=== PATIENT | male | born 1975 | race Caucasian/White ===

== ENCOUNTER 2018-12-24 06:21 | Day surgery (SDC) | payer OTHER ==
[~2018-12-24 06:21] MED LIST: Lactated Ringers 1,000 ML IV SCH; Lidocaine 1%/Sod Bicarbonate in NS 8.4% 1 ML Syringe IDERM PRN; Sodium Chloride 0.9% 10 ML Syringe FLUSH PRN
[2018-12-24] MEDS ORDERED: ceFAZolin 1 GM Vial ONE (06:56)
[2018-12-24] MEDS ORDERED: Ketorolac 30 MG/ML SDV ONE (06:56)
[2018-12-24] MEDS ORDERED: Ondansetron 4 MG/2 ML SDV ONE (06:56)
[2018-12-24] MEDS ORDERED: Lactated Ringers 1,000 ML ONE (06:56)
[2018-12-24] MEDS ORDERED: fentaNYL 100 MCG/2 ML SDV ONE ×2 (06:57→07:39)
[2018-12-24] MEDS ORDERED: Propofol 200 MG/20 ML SDV ONE (06:57)
[2018-12-24] MEDS ORDERED: Dexamethasone 4 MG/ML 5 ML MDV ONE (06:57)
[2018-12-24] MEDS ORDERED: Lidocaine 1% 4 ML ONE (06:57)
[2018-12-24] MEDS ORDERED: Midazolam 1 MG/ML 2 ML SDV ONE (06:57)
[2018-12-24] MEDS ORDERED: EPINEPHrine 1 MG/ML 30 ML MDV SCH (07:00)
[2018-12-24] MEDS ORDERED: Ketamine 500 mg/10 ML MDV ONE (07:01)
[2018-12-24] MEDS ORDERED: Bupivacaine 0.25% 30 ML SDV ONE (07:09)
--- NOTE | 2018-12-24 07:16 | PCM.PREANE ---
Preanesthetic Assessment - Anesthesia/Transfusion/Family Hx Anesthesia History: Prior Anesthesia Without Reaction Family History of Anesthesia Reaction: No - Review of Systems General: No Symptoms Pulmonary: No Symptoms Cardiovascular: No Symptoms Gastrointestinal: No Symptoms Neurological: Headache (Migraines) Other: Reports: None - Physical Assessment NPO Status Date: 12/23/18 NPO Status Time: 22:00 O2 Sat by Pulse Oximetry: 94 Respiratory Rate: 16 Vital Signs: Last Vital Signs Temp 36.2 C 12/24/18 06:35 Pulse 74 12/24/18 06:35 Resp 16 12/24/18 06:35 BP 132/99 H 12/24/18 06:35 Pulse Ox 94 L 12/24/18 06:35 Height: 1.91 m Weight: 102.058 kg ASA Class: 1 Mental Status: Alert & Oriented x3 Airway Class: Mallampati = 2 Dentition: Reports: Caries (Decay noted at gumline.) Thyro-Mental Finger Breadths: 3 Mouth Opening Finger Breadths: 3 ROM/Head Extension: Full Lungs: Clear to Auscultation, Normal Respiratory Effort Cardiovascular: Regular Rate, Regular Rhythm - Lab Values: Laboratory Last Values MRSA (PCR) Negative 12/23/18 12:25 - Allergies Allergies/Adverse Reactions: Allergies Allergy/AdvReac Type Severity Reaction Status Date / Time No Known Allergies Allergy Verified 12/23/18 14:57 - Anesthesia Plan Pre-Op Medication Ordered: Anxiolytic - Acknowledgements Anesthesia Type Planned: General Anesthesia Pt an Appropriate Candidate for the Planned Anesthesia: Yes Alternatives and Risks of Anesthesia Discussed w Pt/Guardian: Yes Pt/Guardian Understands and Agrees with Anesthesia Plan: Yes PreAnesthesia Questionnaire HEENT History: Reports: None Cardiovascular History: Reports: None Respiratory History: Reports: None Gastrointestinal History: Reports: None Genitourinary History: Reports: None Other Musculoskeletal History: Finger injury Neurological History: Reports: Migraines Psychiatric History: Reports: None Endocrine/Metabolic History: Reports: None Hematologic History: Reports: None Immunologic History: Reports: None Oncologic (Cancer) History: Reports: None Dermatologic History: Reports: None - Past Surgical History Head Surgeries/Procedures: Reports: None HEENT Surgical History: Reports: None Cardiovascular Surgical History: Reports: None Respiratory Surgical History: Reports: None GI Surgical History: Reports: None Male Surgical History: Reports: None Endocrine Surgical History: Reports: None Neurological Surgical History: Reports: None Musculoskeletal Surgical History: Reports: Other (See Below) Other Musculoskeletal Surgeries/Procedures:: Left 5th finger surgery, left knee surgery Oncologic Surgical History: Reports: None Dermatological Surgical History: Reports: None - SUBSTANCE USE Smoking Status *Q: Former Smoker Second Hand Smoke Exposure: No Recreational Drug Use History: No - HOME MEDS Home Medications: Home Meds Acetaminophen/HYDROcodone [[place] 325-5 MG] 1 - 2 tab PO Q6H PRN #20 tablet 12/24 [Rx] Aspirin 325 mg PO BID #84 tab 12/24/18 [Rx] traMADol [Ultram] 50 mg PO ASDIRECTED PRN 12/24/18 [History] - CURRENT (IN HOUSE) MEDS Current Meds: Current Medications Lactated Ringer's (Ringers, Lactated) 1,000 mls @ 125 mls/hr IV ASDIRECTED RUEL Stop: 12/24/18 23:00 Last Admin: 12/24/18 06:50 Dose: 125 mls/hr Lidocaine/Sodium Bicarbonate (Buffered Lidocaine 1% In Ns 8.4%) 0.25 ml IDERM ONETIME PRN PRN Reason: Prior to IV Start Stop: 12/24/18 18:00 Sodium Chloride (Saline Flush) 10 ml FLUSH ASDIRECTED PRN PRN Reason: Keep Vein Open Stop: 12/24/18 18:00 Discontinued Medications Bupivacaine HCl (Marcaine 0.25%) Confirm Administered Dose 30 ml .ROUTE .STK- MED ONE Stop: 12/24/18 07:10 Cefazolin Sodium (Ancef) Confirm Administered Dose 2 gm .ROUTE .STK-MED ONE Stop: 12/24/18 06:57 Dexamethasone (Dexamethasone) Confirm Administered Dose 20 mg .ROUTE .STK-MED ONE Stop: 12/24/18 06:58 Fentanyl (Sublimaze) Confirm Administered Dose 100 mcg .ROUTE .STK-MED ONE Stop: 12/24/18 06:58 Lactated Ringer's (Ringers, Lactated) Confirm Administered Dose 1,000 mls @ as directed .ROUTE .STK-MED ONE Stop: 12/24/18 06:57 Lidocaine HCl (Xylocaine-Mpf 1%) Confirm Administered Dose 4 mls @ as directed .ROUTE .STK-MED ONE Stop: 12/24/18 06:58 Ketamine HCl (Ketalar) Confirm Administered Dose 500 mg .ROUTE .STK-MED ONE Stop: 12/24/18 07:02 Ketorolac Tromethamine (Toradol) Confirm Administered Dose 30 mg .ROUTE .STK- MED ONE Stop: 12/24/18 06:57 Midazolam HCl (Versed 1 Mg/Ml) Confirm Administered Dose 2 mg .ROUTE .STK-MED ONE Stop: 12/24/18 06:58 Ondansetron HCl (Zofran) Confirm Administered Dose 4 mg .ROUTE .STK-MED ONE Stop: 12/24/18 06:57 Propofol (Diprivan 20 Ml) Confirm Administered Dose 400 mg .ROUTE .STK-MED ONE Stop: 12/24/18 06:58
[2018-12-24] MEDS ORDERED: ePHEDrine/Normal Saline 25 MG/5 ML Syringe ONE (07:45)
[2018-12-24] MEDS ORDERED: Ondansetron 4 MG/2 ML SDV IVPUSH PRN (08:08)
[2018-12-24] MEDS ORDERED: HYDROmorphone 0.5 MG/0.5 ML Syringe IVPUSH PRN (08:08)
[2018-12-24] MEDS ORDERED: fentaNYL 100 MCG/2 ML SDV IVPUSH PRN (08:08)
[2018-12-24] MEDS ORDERED: diphenhydrAMINE 50 MG/ML SDV IVPUSH PRN (08:08)
--- NOTE | 2018-12-24 08:42 | PCM.POSTAN ---
POST ANESTHESIA ASSESSMENT - MENTAL STATUS Mental Status: Alert, Oriented - VITAL SIGNS Pulse Rate: 87 SaO2: 99 Resp Rate: 10 Blood Pressure: 134/95 Temperature: 36.5 C - RESPIRATORY Respiratory Status: Respiratory Rate WNL, Airway Patent, O2 Saturation Stable, Supplemental Oxygen - CARDIOVASCULAR CV Status: Pulse Rate WNL, Blood Pressure Stable - GASTROINTESTINAL GI Status: No Symptoms - PAIN Pain Score: 0 - POST OP HYDRATION Hydration Status: Adequate & Stable
[2018-12-24] MEDS ORDERED: Acetaminophen/HYDROcodone 325-5 MG Tab PO SCH (09:00)
--- NOTE | 2018-12-24 12:53 | PCM48HPAN ---
Post Anesthesia Note - EVALUATION WITHIN 48HRS OF ANESTHETIC Vital Signs in Normal Range: Yes Patient Participated in Evaluation: Yes Respiratory Function Stable: Yes Airway Patent: Yes Cardiovascular Function Stable: Yes Hydration Status Stable: Yes Pain Control Satisfactory: Yes Nausea and Vomiting Control Satisfactory: Yes Mental Status Recovered: Yes
--- NOTE | 2018-12-25 10:51 | PCM.OPNOTE ---
- General Post-Op/Procedure Note Date of Surgery/Procedure: 12/24/18 Operative Procedure(s): right knee video arthroscopy with partial medial meniscectomy and partial synovectomy Pre Op Diagnosis: right knee medial meniscus tear Post-Op Diagnosis: Same Anesthesia Technique: General LMA, Local Primary Surgeon: Bola Navarro Anesthesia Provider: Janny Monaco [employer] Sales Attendant: Radha Rosen in mLs: 5 Complications: None Condition: Good
--- NOTE | 2018-12-25 11:32 | OR ---
DATE OF OPERATION: 12/24/2018 SURGEON: Bola Navarro MD OPERATION PERFORMED: Right knee video arthroscopy with partial medial meniscectomy and partial synovectomy. PREOPERATIVE DIAGNOSIS: Right knee medial meniscus tear. POSTOPERATIVE DIAGNOSIS: Right knee medial meniscus tear. ANESTHESIA: General LMA with local. ANESTHESIA PROVIDER: Lorna Willis. ESCROW AGENT: Radha Rosen PA-C. ESTIMATED BLOOD LOSS: Less than 5 mL. COMPLICATIONS: None. CONDITION: Stable. DESCRIPTION OF PROCEDURE: The patient was identified in the preop holding area and proper site was marked and identified by the surgeon. The patient was taken back to the operating theater where after adequate anesthesia, the patient's left lower extremity was placed in a well leg gutierrez. The right lower extremity had a nonsterile tourniquet applied and was placed in a C-clamp gutierrez. Foot of the bed was then lowered. The right lower extremity was then sterilely prepped and draped in the usual sterile fashion. OR time-out was performed. The patient received 2 g IV Ancef. At this time, the right lower extremity was exsanguinated. Tourniquet was insufflated to 250 mmHg. Standard anterior lateral portal incision was made. Scope trocar was introduced to the knee joint. There was noted to be significant synovitis. The patient was noted to have a plica on the medial side. Attention was turned to the medial gutter. There was noted to be some loose bodies in the medial gutter. With the use of a spinal needle, anterior medial portal was then created. The patient was noted to have an old bucket- handle tear of the medial meniscus. There was a large portion posteriorly still attached to the root, but the rest was completely gone, and there were just loose pieces in the medial gutter everywhere. At this time, I did resect any loose pieces of the medial meniscus from the previous old bucket-handle tear of the medial meniscus and did resect out any loose bodies in the medial gutter. I was able to put the scope all the way posteriorly to make sure there was no entrapped meniscal fragment, and there was not. At this time, the ACL was found to be intact in the notch. The medial lateral compartment showed very minimal to no changes of chondromalacia. The lateral side showed no signs of any meniscal pathology. I did look in the suprapatellar pouch as well as medial lateral gutters to make sure we did not miss any further parts of the medial meniscus and there was none to be found. A partial synovectomy was then performed on the medial side and the plica was resected. Excess saline was drained from the knee. A 3-0 nylon simple suture was used for closure of the skin. The patient was placed in a sterile soft dressing and sent to PACU in stable condition. KELLI /[id number] MTDD
== END 2018-12-24 10:26 | disposition home or self-care (01) ==
LOC: JD.SDS 06:21
PROVIDERS: ATTEND Orthopaedic Surgery
DX: S83.241A Other tear of medial meniscus, current injury, right knee, initial encounter (principal); H61.20 Impacted cerumen, unspecified ear; Z87.891 Personal history of nicotine dependence; Z01.810 Encounter for preprocedural cardiovascular examination; Z79.891 Long term (current) use of opiate analgesic
CPT/HCPCS: 01400; 87641; A9270-GY; J0171; J0690; J1100; J1885; J2001; J2250; J2405; J2704; J3010; J3490; J7050; J7120